=== PATIENT | male | born 1965 | race Two or more races ===

== ENCOUNTER 2018-01-29 13:52 | Emergency (ER) | payer SELFPAY ==
--- NOTE | 2018-01-29 14:15 | EDPHY ---
H & P Stated Complaint: 3 days n/v/d abd pain Time Seen by Provider: 01/29/18 14:14 HPI/ROS: CHIEF COMPLAINT: Abdominal pain HISTORY OF PRESENT ILLNESS: The patient presents to the ED with complaints of abdominal pain for the past 2 days. The patient reports associated nausea vomiting and diarrhea. The patient denies prior abdominal surgical history. The patient denies any travel outside the [place] or antibiotic use. The patient reports his pain is generalized but appears to be most intense in the left upper quadrant and left lower quadrant. The patient denies any additional respiratory symptoms or other concerns. The patient currently rates his pain is moderate in nature. REVIEW OF SYSTEMS: A comprehensive 10 point review of systems is otherwise negative aside from elements mentioned in the history of present illness. Source: Patient Exam Limitations: No limitations - Personal History Current Tetanus/Diphtheria Vaccine: No - Medical/Surgical History Hx Asthma: No Hx Chronic Respiratory Disease: No Hx Diabetes: No Hx Cardiac Disease: No Hx Renal Disease: No Hx Cirrhosis: No Hx Alcoholism: No Hx HIV/AIDS: No Hx Splenectomy or Spleen Trauma: No Other PMH: denies - Social History Smoking Status: Current every day smoker - Physical Exam Exam: General Appearance: Alert, mild discomfort Eyes: Pupils equal and round no pallor or injection ENT, Mouth: Mucous membranes moist Respiratory: There are no retractions, lungs are clear to auscultation Cardiovascular: Regular rate and rhythm Gastrointestinal: Tenderness to palpation noted in the left upper quadrant and left lower quadrant. No peritoneal signs. Neurological: 5/5 strength all 4 extremities Skin: Warm and dry, no rashes Musculoskeletal: Neck is supple nontender Extremities: symmetrical, full range of motion Psychiatric: Patient is oriented X 3, there is no agitation Constitutional: Initial Vital Signs Temperature (C) 36.6 C 01/29/18 13:55 Heart Rate 98 01/29/18 13:55 Respiratory Rate 18 01/29/18 13:55 Blood Pressure 117/88 H 01/29/18 13:55 O2 Sat (%) 96 01/29/18 13:55 O2 Delivery Mode Room Air Allergies/Adverse Reactions: No Known Allergies Allergy (Unverified 01/29/18 13:54) Home Medications: Medication Instructions Recorded Hydrocodone/APAP 5/325 [[place] 1 - 2 each PO Q6 PRN #20 tab 01/29/18 5/325] Ondansetron Odt [Zofran Odt] 4 mg PO Q4PRN PRN #20 tab 01/29/18 Medical Decision Making - Diagnostics Imaging Results: Imaging Impressions Abdomen CT 01/29/18 14:56 Impression: 1. 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 2. Mild hepatomegaly (versus Rick's right hepatic lobe), and generalized steatosis. 3. Normal appearance of the appendix. Findings were discussed with Moisés Segura MD at 16:04, on 01/29/2018. ED Course/Re-evaluation: The patient presents the ED with several days of generalized abdominal pain, nausea, vomiting and diarrhea. Patient was noted to be mildly uncomfortable in distended at the time of my initial evaluation. Given his physical examination findings of pain and tenderness a CT scan of the abdomen and pelvis was ordered after laboratory studies were sent. CT scan does demonstrate evidence of a enteritis. There is no evidence of a perforation, obstruction, diverticulitis or appendicitis. The patient had an IV established. He received IV Zofran, Toradol and 1 L of normal saline. I re-evaluated the patient at 5:00 p.m.. He reports that he is feeling much better. At this point time I do feel the patient can be discharged home with a likely diagnosis of viral enteritis. The patient will be given a prescription for Zofran and and [place]. He is discharged home with customary abdominal pain precautions. Differential Diagnosis: Differential diagnosis considered includes appendicitis, perforation, obstruction, gastroenteritis, mesenteric adenitis, pancreatitis, hepatitis - Data Points Laboratory Results: Laboratory Results 01/29/18 14:25 01/29/18 14:25 01/29/18 01/29/18 14:25 14:25 WBC 8.05 10^3/uL 10^3/uL (3.80-9.50) RBC 5.58 10^6/uL 10^6/uL (4.40-6.38) Hgb 17.1 g/dL g/dL (13.7-17.5) Hct 49.6 % % (40.0-51.0) MCV 88.9 fL fL (81.5-99.8) MCH 30.6 pg pg (27.9-34.1) MCHC 34.5 g/dL g/dL (32.4-36.7) RDW 13.0 % % (11.5-15.2) Plt Count 258 10^3/uL 10^3/uL (150-400) MPV 9.9 fL fL (8.7-11.7) Neut % (Auto) 60.0 % % (39.3-74.2) Lymph % (Auto) 25.3 % % (15.0-45.0) [place] % (Auto) 13.4 % H % (4.5-13.0) Eos % (Auto) 0.9 % % (0.6-7.6) Baso % (Auto) 0.2 % L % (0.3-1.7) Nucleat RBC Rel Count 0.0 % % (0.0-0.2) Absolute Neuts (auto) 4.82 10^3/uL 10^3/uL (1.70-6.50) Absolute Lymphs (auto) 2.04 10^3/uL 10^3/uL (1.00-3.00) Absolute Monos (auto) 1.08 10^3/uL H 10^3/uL (0.30-0.80) Absolute Eos (auto) 0.07 10^3/uL 10^3/uL (0.03-0.40) Absolute Basos (auto) 0.02 10^3/uL 10^3/uL (0.02-0.10) Absolute Nucleated RBC 0.00 10^3/uL 10^3/uL (0-0.01) Immature Gran % 0.2 % % (0.0-1.1) Immature Gran # 0.02 10^3/uL 10^3/uL (0.00-0.10) Sodium 143 mEq/L mEq/L (135-145) Potassium 3.3 mEq/L L mEq/L (3.5-5.2) Chloride 103 mEq/L mEq/L (97-110) Carbon Dioxide 24 mEq/l mEq/l (22-31) Anion Gap 16 mEq/L mEq/L (8-16) BUN 19 mg/dL mg/dL (7-23) Creatinine 1.0 mg/dL mg/dL (0.7-1.3) Estimated GFR > 60 Glucose 131 mg/dL H mg/dL (70-100) Calcium 9.1 mg/dL mg/dL (8.5-10.4) Total Bilirubin 1.8 mg/dL H mg/dL (0.1-1.4) Conjugated Bilirubin 0.5 mg/dL mg/dL (0.0-0.5) Unconjugated Bilirubin 1.3 mg/dL H mg/dL (0.0-1.1) AST 38 IU/L IU/L (17-59) ALT 77 IU/L H IU/L (21-72) Alkaline Phosphatase 124 IU/L IU/L (38-126) Total Protein 7.2 g/dL g/dL (6.3-8.2) Albumin 4.1 g/dL g/dL (3.5-5.0) Lipase 78 IU/L IU/L (23-300) Medications Given: Discontinued Medications Sodium Chloride (Ns) 1,000 mls @ 0 mls/hr IV ONCE ONE PRN Reason: Wide Open Stop: 01/29/18 15:49 Last Admin: 01/29/18 15:51 Dose: 1,000 mls Ketorolac Tromethamine (Toradol) 30 mg IVP EDNOW ONE Stop: 01/29/18 16:16 Last Admin: 01/29/18 16:23 Dose: 30 mg Ondansetron HCl (Zofran) 4 mg IVP EDNOW ONE Stop: 01/29/18 16:16 Last Admin: 01/29/18 16:23 Dose: 4 mg Departure - Departure Disposition: Home, Routine, Self-Care Clinical Impression: Gastroenteritis Abdominal pain Qualifiers: Abdominal location: left upper quadrant Qualified Code(s): R10.12 - Left upper quadrant pain Condition: Good Instructions: Abdominal Pain (ED) Additional Instructions: Sometimes we are unable to diagnose an obvious cause of abdominal pain in the Emergency Department. Based upon our evaluation today, I believe your having pain, diarrhea and vomiting from a intestinal infection caused by a virus. Because more serious conditions can be difficult to diagnose early in the course of their presentation, we ask that you return to the Emergency Department in 8-12 hours for a recheck if you are still having pain. This is necessary to exclude the development of a more serious condition such as appendicitis or other intra-abdominal emergency. In the event your pain markedly increases before that time or you develop intractable vomiting or fever return to the Emergency Department immediately. Zofran as needed for nausea. [place] as needed for pain. Imodium as needed for diarrhea. Please schedule a follow-up appointment with the primary care provider you have been referred to for any ongoing mild symptoms. Referrals: Ann Munoz MD [Medical Doctor] - As per Instructions Prescriptions: Hydrocodone/APAP 5/325 [[place] 5/325] 1 - 2 each PO Q6 PRN #20 tab PRN Reason: for pain Ondansetron Odt [Zofran Odt] 4 mg PO Q4PRN PRN #20 tab PRN Reason: For Nausea
[2018-01-29 14:31] LABS: PLATELET COUNT 258 10^3/uL (150-400)
[2018-01-29] MEDS ORDERED: IOPAMIDOL (ISOVUE-300) 100 ML BTL ONE (15:01)
[2018-01-29] MEDS ORDERED: NS 1,000 ML IV ONE (15:48)
[2018-01-29] MEDS ORDERED: ONDANSETRON 4 MG/2 ML VIAL IVP ONE (16:15)
[2018-01-29] MEDS ORDERED: KETOROLAC 30 MG/1 ML SDV IVP ONE (16:15)
[2018-01-29 17:00] VITALS: BP 119/85
== END 2018-01-29 17:02 | disposition home or self-care (01) ==
DX: K52.9 Noninfective gastroenteritis and colitis, unspecified (principal); F17.200 Nicotine dependence, unspecified, uncomplicated; E86.9 Volume depletion, unspecified
CPT/HCPCS: 96374; J1885; J2405; Q9967